=== PATIENT | male | born 1995 | race Caucasian/White ===

== ENCOUNTER 2019-02-14 13:55 | Emergency (ER) | payer BC, OTHER ==
[2019-02-14 15:24] LABS: Absolute Lymphocytes (CBC) 0.5 K/uL (0.7-4.9); Absolute Monocytes 0.5 K/uL (0.1-1.3); Absolute Neutrophil 10.5 K/uL (1.8-8.0); Basophils % 0.2 % (0-1.3); Eosinophils % 0.7 % (0-4.4); Hematocrit 50.6 % (39.6-49.0); Lymphocytes % 4.5 % (15.3-44.8); MPV 9.1 fL (7.6-11.3); Monocytes % 4.5 % (3.3-12.3); RBC Red Blood Cell Count 5.69 M/uL (4.33-5.43)
[2019-02-14 15:30] LABS: Urine Blood NEGATIVE (NEG); Urine Glucose NEGATIVE (NEG); Urine Protein NEGATIVE (NEG); Urine Specific Gravity 1.015 (1.005-1.030)
[2019-02-14] MEDS ORDERED: ONDANSETRON 4 MG/2 ML VIAL ONE (15:38)
[2019-02-14] MEDS ORDERED: MEPERIDINE HCL 25 MG/0.5 ML ONE (15:38)
[2019-02-14 16:03] LABS: Albumin 4.2 g/dL (3.4-5.0); Bilirubin Direct 0.2 mg/dL (0-0.2); Bilirubin Total 0.9 mg/dL (0.2-1.0); Potassium 4.2 mmol/L (3.5-5.1); Protein, Total 7.5 g/dL (6.4-8.2)
--- NOTE | 2019-02-14 16:20 | RAD REPORT ---
EXAM DESCRIPTION: US - Abdomen Exam Limited - 02/14/2019 4:10 pm CLINICAL HISTORY: r/o GB;Abd pain COMPARISON: <Comparisons> FINDINGS: The gallbladder demonstrates no gallstones. No pericholecystic fluid or gallbladder wall t hickening. The common bile duct is normal measuring 3 mm. The liver demonstrates no findings of intrahepatic biliary dilatation. IMPRESSION: Unremarkable examination.
[2019-02-14 16:51] LABS: Blood Morphology Comment NOT SEEN (NOT SEEN); Platelet Estimate ADEQ; Urine White Blood Cell Casts OK
--- NOTE | 2019-02-14 16:57 | RAD REPORT ---
EXAM DESCRIPTION: CTAbdomen Pelvis W Contrast - 02/14/2019 4:48 pm CLINICAL HISTORY: Abdominal pain. ABD PAIN COMPARISON: <Comparisons> TECHNIQUE: Biphasic CT imaging of the abdomen and pelvis was performed with 100 ml non-ionic IV cont rast. All CT scans are performed using dose optimization technique as appropriate and may include automated exposure control or mA/KV adjustment according to patient size. FINDINGS: The lung bases are clear. The liver, spleen, pancreas, adrenal glands and kidneys are within normal limits. No bowel obstruction, free air, free fluid or abscess. The appendix is normal. No evidence of signi ficant lymphadenopathy. No suspicious bony findings. IMPRESSION: No acute intra-abdominal or pelvic finding.
--- NOTE | 2019-02-14 17:18 | EDPHYS ---
Physician Documentation [facility] Name: Oumar Hua Age: 24 yrs Sex: Male : 1995 Arrival Date: 02/14/2019 Time: 13:59 Bed 23 Private MD: Unknown, Unknown ED Physician Antonino Santos HPI: 02/14 15:46 This 24 yrs old Male presents to ER via Ambulatory with complaints of jr8 Abdominal Pain. 15:46 The patient presents with abdominal pain in the upper abdomen. Onset: The jr8 symptoms/episode began/occurred acutely, today. The symptoms do not radiate. Associated signs and symptoms: none. The symptoms are described as sharp. Modifying factors: The symptoms are alleviated by nothing, the symptoms are aggravated by nothing. Severity of pain: At its worst the pain was moderate in the emergency department the pain is unchanged. The patient has not experienced similar symptoms in the past. The patient has not recently seen a physician. Historical: - Allergies: 14:02 No Known Allergies; la1 - Home Meds: 14:02 None [Active]; la1 - PMHx: 14:02 None; la1 - PSHx: 14:02 None; la1 - Immunization history:: Adult Immunizations up to date. - Social history:: Smoking status: Patient uses tobacco products, smokes one-half pack cigarettes per day. - Ebola Screening: : No symptoms or risks identified at this time. ROS: 15:46 Eyes: Negative for injury, pain, redness, and discharge, ENT: Negative for injury, jr8 pain, and discharge, Neck: Negative for injury, pain, and swelling, Cardiovascular: Negative for chest pain, palpitations, and edema, Respiratory: Negative for shortness of breath, cough, wheezing, and pleuritic chest pain, Back: Negative for injury and pain, MS/Extremity: Negative for injury and deformity, Skin: Negative for injury, rash, and discoloration, Neuro: Negative for headache, weakness, numbness, tingling, and seizure. 15:46 Abdomen/GI: Positive for abdominal pain, Negative for nausea, vomiting, and diarrhea, abdominal cramps, abdominal distension, anorexia, dysphagia, hematemesis, black/tarry stool, rectal pain, rectal bleeding, bowel incontinence, flatulence. Exam: 15:46 Eyes: Pupils equal round and reactive to light, extra-ocular motions intact. Lids and jr8 lashes normal. Conjunctiva and sclera are non-icteric and not injected. Cornea within normal limits. Periorbital areas with no swelling, redness, or edema. ENT: Nares patent. No nasal discharge, no septal abnormalities noted. Tympanic membranes are normal and external auditory canals are clear. Oropharynx with no redness, swelling, or masses, exudates, or evidence of obstruction, uvula midline. Mucous membranes moist. Neck: Trachea midline, no thyromegaly or masses palpated, and no cervical lymphadenopathy. Supple, full range of motion without nuchal rigidity, or vertebral point tenderness. No Meningismus. Cardiovascular: Regular rate and rhythm with a normal S1 and S2. No gallops, murmurs, or rubs. Normal PMI, no JVD. No pulse deficits. Respiratory: Lungs have equal breath sounds bilaterally, clear to auscultation and percussion. No rales, rhonchi or wheezes noted. No increased work of breathing, no retractions or nasal flaring. Back: No spinal tenderness. No costovertebral tenderness. Full range of motion. Skin: Warm, dry with normal turgor. Normal color with no rashes, no lesions, and no evidence of cellulitis. MS/ Extremity: Pulses equal, no cyanosis. Neurovascular intact. Full, normal range of motion. Neuro: Awake and alert, GCS 15, oriented to person, place, time, and situation. Cranial nerves II-XII grossly intact. Motor strength 5/5 in all extremities. Sensory grossly intact. Cerebellar exam normal. Normal gait. 15:46 Abdomen/GI: Inspection: abdomen appears normal, Bowel sounds: active, all quadrants, Palpation: soft, in all quadrants, mild abdominal tenderness, in the epigastric area and right upper quadrant, mass, is not appreciated, rebound tenderness, is not appreciated, voluntary guarding, is not appreciated, involuntary guarding, is not appreciated, no appreciated organomegaly, Indicators: McBurney's point is not tender, Lorenz's sign is positive, Rovsing's sign is negative, Liver: tenderness, is not appreciated. Vital Signs: 14:02 BP 127 / 74; Pulse 103; Resp 14; Temp 99.3; Pulse Ox 100% on R/A; Weight 108.86 kg; la1 Height 5 ft. 10 in. (177.80 cm); 15:21 BP 111 / 63; Pulse 92; Resp 18; Temp 99; Pulse Ox 99% on R/A; Pain 4/10; mg2 17:45 BP 122 / 74; Pulse 90; Resp 18; Temp 98; Pulse Ox 100% on R/A; Pain 0/10; mg2 14:02 Body Mass Index 34.44 (108.86 kg, 177.80 cm) la1 MDM: 14:48 Patient medically screened. jr8 17:14 Data reviewed: vital signs, nurses notes, lab test result(s), radiologic studies, CT jr8 scan, ultrasound. Data interpreted: Pulse oximetry: on room air is 99 %. Interpretation: normal. 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 Response to treatment: the patient's symptoms have markedly improved after treatment. 17:14 Special discussion: Based on the patient's Hx, exam, and Dx evaluation, there is no jr8 indication for emergent surgery or inpatient Tx. It is understood by the patient/guardian that if the Sx's persist or worsen they need to return immediately for re-evaluation. 02/14 14:56 Order name: Basic Metabolic Panel mg2 02/14 14:56 Order name: CBC with Diff mg2 02/14 14:56 Order name: Creatinine for Radiology mg2 02/14 14:56 Order name: Hepatic Function; Complete Time: 16:11 mg2 02/14 14:56 Order name: Lipase; Complete Time: 16:11 mg2 02/14 14:57 Order name: Basic Metabolic Panel; Complete Time: 16:11 EDMS 02/14 14:57 Order name: CBC with Automated Diff; Complete Time: 16:54 EDMS 02/14 14:57 Order name: Creatinine (Radiology Only); Complete Time: 15:46 EDMS 02/14 15:13 Order name: Urine Dipstick--Ancillary (enter results); Complete Time: 15:33 ms 02/14 15:18 Order name: US Abdomen Limited; Complete Time: 16:22 jr8 02/14 16:09 Order name: CT Abd/Pelvis - IV Contrast Only; Complete Time: 16:58 [facility] 02/14 16:53 Order name: CBC Smear Scan; Complete Time: 16:54 EDUT 02/14 14:56 Order name: IV Saline Lock; Complete Time: 15:04 mg2 02/14 14:56 Order name: Labs collected and sent; Complete Time: 15:04 mg2 Administered Medications: 15:25 Drug: Zofran 4 mg Route: IVP; Site: right antecubital; mg2 16:55 Follow up: Response: No adverse reaction; Marked relief of symptoms mg2 15:26 Drug: Demerol 25 mg Route: IVP; Site: right antecubital; mg2 16:55 Follow up: Response: No adverse reaction; Marked relief of symptoms mg2 Disposition: 02/15 12:50 Co-signature as Attending Physician, Antonino Santos MD. Disposition: 02/14/19 17:17 Discharged to Home. Impression: Upper abdominal pain, unspecified, Gastritis, unspecified. - Condition is Stable. - Discharge Instructions: Abdominal Pain, Adult, Gastritis, Adult. - Medication Reconciliation Form, Thank You Letter, Antibiotic Education, Prescription Opioid Use form. - Follow up: Ross Azar MD; When: 5 - 6 days; Reason: Recheck today's complaints, Continuance of care, Re-evaluation by your physician. - Problem is new. - Symptoms have improved. - Notes: Pepcid 20 mg over the counter twice daily for next two weeks Signatures: Dispatcher [employer] [facility] Shaji Al PA PA jr8 Jose Nuno RN RN la1 Antonino Santos MD MD Tejinder Trevino RN RN mg2 Corrections: (The following items were deleted from the chart) 02/14 17:46 17:17 02/14/2019 17:17 Discharged to Home. Impression: Upper abdominal pain, mg2 unspecified; Gastritis, unspecified. Condition is Stable. Forms are Medication Reconciliation Form, Thank You Letter, Antibiotic Education, Prescription Opioid Use. Follow up: Ross Azar; When: 5 - 6 days; Reason: Recheck today's complaints, Continuance of care, Re-evaluation by your physician. Problem is new. Symptoms have improved. jr8
--- NOTE | 2019-02-14 17:18 | ER ---
Nurse's Notes [facility] Name: Oumar Hua Age: 24 yrs Sex: Male : 1995 Arrival Date: 02/14/2019 Time: 13:59 Bed 23 Private MD: Unknown, Unknown Diagnosis: Upper abdominal pain, unspecified;Gastritis, unspecified Presentation: 02/14 14:00 Presenting complaint: Patient states: I have had upper abd pain that radiates around la1 the left side of my abd. Pt woke up with pain and vomited x1, states eating makes it worse. Transition of care: patient was not received from another setting of care. Onset of symptoms was February 14, 2019. Risk Assessment: Do you want to hurt yourself or someone else? Patient reports no desire to harm self or others. Initial Sepsis Screen: Does the patient meet any 2 criteria? No. Patient's initial sepsis screen is negative. Does the patient have a suspected source of infection? No. Patient's initial sepsis screen is negative. Care prior to arrival: None. 14:00 Method Of Arrival: Ambulatory la1 14:00 Acuity: [place] 3 la1 Historical: - Allergies: 14:02 No Known Allergies; la1 - Home Meds: 14:02 None [Active]; la1 - PMHx: 14:02 None; la1 - PSHx: 14:02 None; la1 - Immunization history:: Adult Immunizations up to date. - Social history:: Smoking status: Patient uses tobacco products, smokes one-half pack cigarettes per day. - Ebola Screening: : No symptoms or risks identified at this time. Screenin:20 Abuse screen: Denies threats or abuse. Denies injuries from another. Nutritional mg2 screening: No deficits noted. Tuberculosis screening: No symptoms or risk factors identified. Fall Risk IV access (20 points). Assessment: 15:18 General: Appears in no apparent distress. comfortable, Behavior is calm, cooperative. mg2 Pain: Complains of pain in abdomen Pain radiates to back Pain currently is 5 out of 10 on a pain scale. Quality of pain is described as aching, Pain began gradually, Is intermittent. Neuro: Level of Consciousness is awake, alert, obeys commands, Oriented to person, place, time, situation. Cardiovascular: Capillary refill < 3 seconds Patient's skin is warm and dry. Respiratory: Airway is patent Respiratory effort is even, unlabored, Respiratory pattern is regular, symmetrical. GI: Bowel sounds present X 4 quads. Abd is soft and non tender. : Urine is clear. EENT: No signs and/or symptoms were reported regarding the EENT system. Derm: Skin is intact, is healthy with good turgor, Skin is pink, warm \T\ dry. normal. Musculoskeletal: Circulation, motion, and sensation intact. Capillary refill < 3 seconds. 16:54 Reassessment: patient sent to ct scan via wheelchair. mg2 17:46 Reassessment: Patient appears in no apparent distress at this time. Patient denies pain mg2 at this time. Patient states feeling better. Vital Signs: 14:02 BP 127 / 74; Pulse 103; Resp 14; Temp 99.3; Pulse Ox 100% on R/A; Weight 108.86 kg; la1 Height 5 ft. 10 in. (177.80 cm); 15:21 BP 111 / 63; Pulse 92; Resp 18; Temp 99; Pulse Ox 99% on R/A; Pain 4/10; mg2 17:45 BP 122 / 74; Pulse 90; Resp 18; Temp 98; Pulse Ox 100% on R/A; Pain 0/10; mg2 14:02 Body Mass Index 34.44 (108.86 kg, 177.80 cm) la1 ED Course: 13:59 Patient arrived in ED. ag5 13:59 Unknown, Unknown is Private Physician. ag5 14:02 Triage completed. la1 14:03 Arm band placed on right wrist. la1 14:48 [facility]. jr8 14:48 Antonino Santos MD is Attending Physician. jr8 14:54 Tejinder Trevino, VJ is Primary Nurse. mg2 15:21 Patient has correct armband on for positive identification. mg2 15:21 No provider procedures requiring assistance completed. Inserted saline lock: 20 gauge mg2 in right antecubital area, using aseptic technique. Blood collected. 16:09 Ultrasound completed. Patient tolerated well. 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 sg3 16:10 US Abdomen Limited In Process Unspecified. EDMS 16:49 CT completed. Patient tolerated procedure well. Patient moved back from CT. mw3 16:51 CT Abd/Pelvis - IV Contrast Only In Process Unspecified. EDMS 17:17 Ross Azar MD is Referral Physician. jr8 17:46 IV discontinued, intact, bleeding controlled, No redness/swelling at site. Pressure mg2 dressing applied. Administered Medications: 15:25 Drug: Zofran 4 mg Route: IVP; Site: right antecubital; mg2 16:55 Follow up: Response: No adverse reaction; Marked relief of symptoms mg2 15:26 Drug: Demerol 25 mg Route: IVP; Site: right antecubital; mg2 16:55 Follow up: Response: No adverse reaction; Marked relief of symptoms mg2 Outcome: 17:17 Discharge ordered by . jr8 17:46 Discharged to home ambulatory, with family. mg2 17:46 Condition: stable 17:46 Discharge instructions given to patient, family, Instructed on discharge instructions, follow up and referral plans. Demonstrated understanding of instructions, follow-up care. 17:46 Patient left the ED. mg2 Signatures: Dispatcher [employer] [facility] Shaji Al PA PA jr8 Jose Nuno RN RN nd1 Tammy Watts 3 Tejinder Trevino RN RN mg2 Marianela Garcia 3 Morena Bosch 5
== END 2019-02-14 17:46 | disposition home or self-care (01) ==
LOC: ER 13:55
DX: K29.70 Gastritis, unspecified, without bleeding (principal); F17.210 Nicotine dependence, cigarettes, uncomplicated
CPT/HCPCS: 36415; 74177; 76705; 80048; 80076; 81003; 83690; 85025; 96374; 96375; 99284; J2175; J2405; Q9967